=== PATIENT | female | born 1975 | race Hispanic/Latino ===

== ENCOUNTER 2017-05-29 08:02 | Outpatient (CLI) | payer OTHER | END 2017-05-29 08:03 | disposition home or self-care (01) | LOC: BICMAMMO 08:02 | PROVIDERS: ATTEND Obstetrics & Gynecology | DX: Z12.31 Encounter for screening mammogram for malignant neoplasm of breast (principal) | CPT/HCPCS: 77067 ==

== ENCOUNTER 2018-05-26 01:19 | Observation (INO) | payer OTHER ==
[2018-05-26 01:46] LABS: Bilirubin Negative (Negative); Blood, Urine Negative (Negative); Clarity CLEAR (Clear); Glucose, Urine (Dipstick) Negative (Negative); Leukocyte Small (Negative); Nitrite Negative (Negative); Protein, Urine (Dipstick) 30 mg/dL (Neg-Trace); Urobilinogen 0.2 mg/dL (0.2-1.0); pH, Urine 5.5 (5.0-9.0)
[2018-05-26 01:48] LABS: Bacteria/HPF None Seen HPF (None Seen); Hyaline Casts/LPF 4-6 HYALINE CAST LPF (0-3 Hyaline); Pathc Cast-AUWi Flag 1.88 (0-2.49)
[2018-05-26 02:11] LABS: #Basophils 0.1 thou/uL (0.0-0.2); #Eosinphils 0.1 thou/uL (0.0-0.7); #Lymphocytes 3.6 thou/uL (1.20-3.40); #Monocytes 0.9 thou/uL (0.11-0.59); #Neutrophils 8.7 thou/uL (1.40-6.50); %Basophils 0.4 % (0.0-1.0); %Eosinophils 0.9 % (0.0-10.0); %Lymphocytes 27.2 % (21.0-51.0); %Monocytes 6.9 % (0.0-10.0); %Neutrophils 64.6 % (42.0-75.0); Hemoglobin 14.7 g/dL (12.0-16.0); Mean Corpuscular HGB CONC 33.2 g/dL (32.0-36.0); Mean Corpuscular Hemoglobin 28.7 pg (27.0-31.0); Mean Corpuscular Volume 86.5 fL (78.0-98.0); Mean Platelet Volume 6.9 fL (7.4-10.4); Platelet Count 273 thou/uL (130-400); RBC Distribution Width 12.6 % (11.5-14.5); White Blood Cell (WBC) Count 13.4 thou/uL (4.8-10.8)
[2018-05-26 02:29] LABS: ALT (SGPT) 37 U/L (8-55); AST (SGOT) 18 U/L (5-34); Albumin 3.9 g/dL (3.5-5.0); Alkaline Phosphatase 102 U/L (40-150); Anion Gap 13 mmol/L (10-20); BUN (Urea Nitrogen) 12 mg/dL (7.0-18.7); Bilirubin, Total 0.6 mg/dL (0.2-1.2); Calc. Creatinine Clearance 0 mL/min (70-130); Calcium 9.2 mg/dL (7.8-10.44); Carbon Dioxide 25 mmol/L (22-29); Chloride 105 mmol/L (98-107); Estimated GFR-MDRD 79; Globulin 3.9 g/dL (2.4-3.5); Glucose 105 mg/dL (70-105); Lipase 126 U/L (8-78); Potassium 3.6 mmol/L (3.5-5.1); Protein, Total 7.8 g/dL (6.0-8.3); Sodium 139 mmol/L (136-145)
[2018-05-26] MEDS ORDERED: Morphine 4 MG/ML VIAL ONE (04:10)
[2018-05-26] MEDS ORDERED: Ketorolac Tromethamine 30 MG/ML VIAL ONE (04:10)
[2018-05-26] MEDS ORDERED: Piperacillin/Tazobactam 3.375 GM VIAL ONE (05:23)
[2018-05-26] MEDS ORDERED: Morphine 4 MG/ML VIAL SLOW IVP PRN (06:42)
[2018-05-26] MEDS ORDERED: Sodium Chloride 0.45% 1,000 ML IV SCH (06:45)
[2018-05-26 06:53] VITALS: BMI 34.7
--- NOTE | 2018-05-26 07:56 | ULT ---
PRELIMINARY REPORT/[facility]/EMERGENTY AFTER-HOURS PROCEDURE US Abdomen Limited, Right Upper Quadrant EXAM DATE/TIME: 05/26/2018 2:29 AM CLINICAL HISTORY: 43 years old, female; Pain; Other: Ruq pain, HX of gallstones TECHNIQUE: Real-time ultrasound of the abdomen with image documentation. Examination was focused on the right up per quadrant. COMPARISON: No relevant prior studies available. FINDINGS: Liver: Liver demonstrates fatty infiltration. Hypoechoic 3.5 x 3.2 x 4.6 cm focus noted left lobe whi ch may reflect area of fatty sparing however mass not excluded. Gallbladder: Multiple stones with sludge, wall thickening at 3 mm, and focal sonographic tenderness. Common bile duct: 5 mm. No stones. No dilation. Pancreas: Obscured. Right kidney: Normal. No mass. No hydronephrosis. IMPRESSION: Gallstones with sludge, wall thickening and focal sonographic tenderness. Findings consistent with ch olecystitis in the appropriate clinical setting. Fatty liver. Hypoechoic focus noted left lobe which may reflect area of fatty sparing however mass not excluded. Nonemergent MRI vs CT liver correlation advised. Thank you for allowing us to participate in the care of your patient. Dictated and Authenticated by: Sara Swartz MD 05/26/2018 5:06 AM Central Time ([place] & [place]) FINAL REPORT ULTRASOUND GALLBLADDER RIGHT UPPER QUADRANT: History: Pain. Comparison: None. FINDINGS: The findings and impression are concordant with the preliminary report. Code QA. Liver protocol CT or MRI is highly recommended. POS: [facility]
[2018-05-26] MEDS ORDERED: Ondansetron PF 4 MG/2 ML Vial ONE (09:21)
[2018-05-26] MEDS ORDERED: Lidocaine 1% PF 5 ML VIAL ONE (09:21)
[2018-05-26] MEDS ORDERED: PROPOFOL 200 MG/20 ML VIAL ONE (09:21)
[2018-05-26] MEDS ORDERED: PHENYLEPHRINE-NS 100 MCG/ML 10 ML SYRINGE ONE (09:21)
[2018-05-26] MEDS ORDERED: cefOXitin Sodium/Dextrose,Iso 2 GM in Premix Bag 1 BAG IVPB SCH (10:30)
[2018-05-26] MEDS ORDERED: cefOXitin 2 GM in Sodium Chloride 0.9% 100 ML IVPB SCH (10:30)
[2018-05-26] MEDS ORDERED: Piperacillin/Tazobactam 4.5 GM in Sodium Chloride 0.9% 100 ML IVPB SCH (12:00)
[2018-05-26] MEDS ORDERED: Fentanyl 100 MCG/2 ML VIAL ONE ×3 (12:53→14:50)
[2018-05-26] MEDS ORDERED: Famotidine/PF 20 mg/2ml Vial ONE (12:54)
--- NOTE | 2018-05-26 13:45 | HP ---
HISTORY OF PRESENT ILLNESS: Ms. Flores is a 43-year-old woman, who was visiting family in [place]. The patient reports insidious onset of epigastric abdominal pain, which was postprandial in nature while in [place]. The patient's pain started 4 days ago, associated with abdominal bloating and flatulence. Pain was rated at 10/10. The patient also endorsed some nausea and nonbilious emesis. Denies any fevers or chills. She was seen in [place] by primary physician and received antibiotics and IV fluids overnight with minimum relief the next day. This patient was unable to retain some of the oral medications that was given to her the next day. They decided to return back to [facility]. En route, the patient had a recurrent epigastric abdominal pain when she took a bite of subway sandwich. She then presented to the emergency department yesterday with a complaint of worsening abdominal pain. She denies any fevers or chills. PAST MEDICAL HISTORY: Denies any previous medical problems except for some ovarian neoplastic process. She is unsure as to if there were malignancies. PAST SURGICAL HISTORY: Pertinent now for total abdominal hysterectomy with bilateral salpingo-oophorectomy. SOCIAL HISTORY: The patient is and lives at home with her family. She is a G2, P2. 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 She denies any cigarette smoking, ethanol, or illicit drug abuse. FAMILY HISTORY: Notable for her father with essential hypertension and diabetes mellitus. She denies any family history of heart disease or cancer. PRE-HOSPITAL MEDICATIONS: She denies any medications except for [id number] multivitamins. ALLERGIES: THE PATIENT DENIES ANY KNOWN DRUG ALLERGIES. REVIEW OF SYSTEMS: Ten-point review of systems essentially unremarkable except as stated in past medical history and chief complaint. PHYSICAL EXAMINATION: GENERAL: This reveals a 43-year-old normally-developed woman, who is otherwise coherent and interactive and appears stated age. The patient is alert and oriented x3, appears to be in no acute distress at the time of my evaluation. She now rates the pain at 4/10. VITAL SIGNS: This morning, blood pressure 105/67, pulse 77, respiratory rate is 15, temperature 98.4 degrees Fahrenheit, and oxygen saturation 95% on room air. HEENT: Reveals normocephalic and atraumatic. Pupils are equal, round, and reactive to light and accommodation. Extraocular muscles are intact bilaterally. She has no sclerae icterus present. Oral mucosa pink and moist. No lesions are noted. HEART: Reveals regular rate and rhythm. No murmurs or gallops auscultated. LUNGS: Clear to auscultation bilaterally. Her breathing regular and nonlabored. ABDOMEN: Soft and obese. She has right upper quadrant tenderness to palpation with a positive Jimenez's sign. Liver and spleen otherwise nonpalpable below costal margin. EXTREMITIES: Reveal 2+ radial and pedal pulses bilaterally. She has no ankle edema present. NEUROLOGIC: Reveals no focal deficits present. LABORATORY FINDINGS: Today includes a CBC with 13,400 white blood cells, hemoglobin and hematocrit 14.7 and 44.1 respectively, and platelet count is 273,000. Metabolic profile; sodium 139, potassium 3.6, chloride is 105, bicarb is 25, BUN 12, creatinine 0.79, and glucose 105. Total bilirubin 0.6, AST and ALT normal at 18 and 37 respectively, and alkaline phosphatase is also normal at 102. Serum lipase is marginally elevated at 126. I have personally reviewed the abdominal ultrasound, which is remarkable for multiple intraluminal gallstones. There is gallbladder wall thickening and pericholecystic fluid present. Common bile duct is normal in diameter for this patient's age at 5.1 mm in diameter. IMPRESSION: Acute cholecystitis with cholelithiasis. PLAN: 1. Laparoscopic cholecystectomy. 2. I advised the patient of the above findings and plan. 3. I also informed the patient of the risks and benefits of the proposed surgery to include, but not limited to, bleeding, infection, injury to bile duct or surrounding structures. 4. This information was provided to the patient through a design transferrer. The patient indicates understanding information given. 5. She is going to consent for this admission and surgical intervention. Job ID: [id number]
[2018-05-26] MEDS ORDERED: Bupivacaine/Epinephrine 0.25% 30 ML VIAL ONE (14:36)
[2018-05-26] MEDS ORDERED: Midazolam HCl 2 mg/2 ml Vial ONE (14:50)
[2018-05-26] MEDS ORDERED: Iothalamate Meglumine 60% 50 ML VIAL FS ONE (15:55)
[2018-05-26] MEDS ORDERED: Promethazine HCl 25 MG/ML VIAL IM PRN (17:49)
[2018-05-26] MEDS ORDERED: Promethazine HCl 25 MG/ML VIAL SLOW IVP PRN (17:49)
[2018-05-26] MEDS ORDERED: Ondansetron HCl/PF 4 MG/2 ML Vial IVP PRN (17:49)
[2018-05-26] MEDS ORDERED: traMADol HCl 50 MG TAB PO PRN (17:56)
[2018-05-26] MEDS ORDERED: Ibuprofen 800 MG TAB PO PRN (17:56)
[2018-05-26] MEDS ORDERED: Piperacillin/Tazobactam 3.375 GM in Sodium Chloride 0.9% 100 ML IVPB SCH (18:00)
--- NOTE | 2018-05-26 18:25 | RAD ---
X-RAY CHOLANGIOGRAM IN SURGERY: HISTORY: Laparoscopic cholecystectomy with cholangiogram. COMPARISON: None. FINDINGS: The cystic duct is cannulated. Contrast is seen in the cystic duct and the common bile duct, as well as the pancreatic duct. There is small volume contrast within the proximal small bowel. IMPRESSION: Fluoroscopy for surgical use. POS: HOME
[2018-05-26] MEDS: Acetaminophen 500 MG TAB PO SCH ×2 (19:46→23:33)
[2018-05-26] MEDS: traMADol HCl 50 MG TAB PO PRN (20:33)
[2018-05-26] MEDS: Piperacillin/Tazobactam 3.375 GM in Sodium Chloride 0.9% 100 ML IVPB SCH (20:40)
--- NOTE | 2018-05-27 00:50 | OP ---
DATE OF PROCEDURE: 05/26/2018 PREOPERATIVE DIAGNOSIS: Acute cholecystitis with cholelithiasis. POSTOPERATIVE DIAGNOSES: Acute cholecystitis, cholelithiasis, and choledocholithiasis. OPERATION PERFORMED: Laparoscopic cholecystectomy with intraoperative cholangiogram. ANESTHESIA: General endotracheal. ESTIMATED BLOOD LOSS: 25 mL. FLUIDS GIVEN: 1500 mL crystalloids. COUNTS: Sponge and instrument count was verified as correct x2. COMPLICATIONS: None apparent at the time of operation. INDICATIONS FOR OPERATION: A 43-year-old woman, who presented with recurrent epigastric right upper quadrant abdominal pain. Clinical radiographic examination was consistent with acute cholecystitis with cholelithiasis for which the patient was brought to the operative room for cholecystectomy. Intraoperative cholangiogram was also performed as the patient was noted with mildly elevated lipase. The common bile duct was also upper limits of normal for patient's age. Findings are consistent with gallbladder in the usual anatomic location, completely encased by omental adhesions. Cholangiography also reveals distal common bile duct with filling defects suggestive of choledocholithiasis. DESCRIPTION OF PROCEDURE: Informed consent was obtained from the patient, who was brought to the operating room and placed in supine position. Following general anesthesia, abdomen was sterilely prepped and draped in the usual fashion. The skin below the umbilicus was infiltrated with 0.25% Marcaine with epinephrine. A small curvilinear infraumbilical incision was made using 11 scalpel. The umbilical stalk was grasped with a Geovanna and elevated. Veress needle was inserted through incision first in the peritoneal cavity through which the abdomen was insufflated with 3 L of CO2 gas. The intraabdominal pressure was noted at 2 mmHg present for abdomen insufflation. The Veress needle was removed and a 5 mm trocar was introduced using a Visiport under laparoscopy. Laparoscopy confirmed proper placement of the port with no injury to the underlying structures. Additional laparoscopy revealed gallbladder in the usual anatomic location, completely encased by omental adhesions. Under direct laparoscopy, a 12 mm epigastric and two 5 mm right lateral subcostal ports were placed. The overlying skin was infiltrated with 0.25% Marcaine with epinephrine and appropriate incision was made. The patient was placed in a reverse Trendelenburg position and rotated to the left. I introduced a Yanet dissector with cautery using this to take down omental adhesions to expose the fundus of the gallbladder. A NextGreatPlaceige grasper was introduced through the right lateral subcostal port, grasping the fundus of gallbladder, which was elevated cephalad. The omental adhesions were then taken down from the remainder of the gallbladder using a Yanet dissector with cautery. Good hemostasis was noted in place. Anterior coursing cystic artery was dissected free from surrounding structures and divided between clips, applying two clips proximally and one clip at the junction of the cystic artery and gallbladder. The cystic duct was also carefully dissected free from surrounding structures. I placed a securing clip at the junction of the cystic duct and gallbladder. Cystotomy was made proximal to securing clip using Endo scissors. To introduce the cholangiocatheter in the right upper quadrant, we flushed first with saline and the catheter was introduced into the cystic duct for lumen, securing this with a single clip. It was flushed with difficulty with saline and then on direct fluoroscopy cholangiogram was completed using a total of 23 mL of Conray contrast. Total fluoroscopy time was 56 seconds. There was a filling defect in the distal aspect of the common bile duct. I gave a milligram of glucagon and repeated the cholangiogram, still persistent distal common bile duct. No filling defect was noted. Cholangiography was terminated at this juncture. Securing clip was removed and the cystic duct was divided between clips, applying two clips proximally. The gallbladder itself was removed from the liver bed using cautery with good hemostasis. Gallbladder was delivered out of the abdominal cavity using the EndoCatch. Operative site was irrigated with saline. Finding no other pathology, laparoscopy was terminated. The fascia of the epigastric port was closed using 0 Vicryl suture and endo-closure on the laparoscopy. Abdomen was desufflated. All ports and instruments were removed and accounted for. Skin incision was closed using 4-0 Monocryl suture in subcuticular fashion. Dermabond was applied over incisional closure. The patient tolerated the operation without any apparent complication and was returned to recovery room in satisfactory condition. Job ID: [id number]
[2018-05-27] MEDS: Piperacillin/Tazobactam 3.375 GM in Sodium Chloride 0.9% 100 ML IVPB SCH ×5 (03:45→21:14)
[2018-05-27] MEDS: Acetaminophen 500 MG TAB PO SCH ×3 (05:41→16:53)
[2018-05-27 07:15] LABS: #Eosinphils 0.1 thou/uL (0.0-0.7); #Lymphocytes 2.5 thou/uL (1.20-3.40); #Monocytes 0.7 thou/uL (0.11-0.59); #Neutrophils 7.1 thou/uL (1.40-6.50); %Basophils 0.2 % (0.0-1.0); %Eosinophils 0.7 % (0.0-10.0); %Lymphocytes 23.7 % (21.0-51.0); %Monocytes 6.6 % (0.0-10.0); %Neutrophils 68.8 % (42.0-75.0); Hemoglobin 12.6 g/dL (12.0-16.0); Mean Corpuscular HGB CONC 33.3 g/dL (32.0-36.0); Mean Corpuscular Hemoglobin 28.8 pg (27.0-31.0); Mean Corpuscular Volume 86.5 fL (78.0-98.0); Mean Platelet Volume 6.9 fL (7.4-10.4); Platelet Count 245 thou/uL (130-400); RBC Distribution Width 12.3 % (11.5-14.5); Red Blood Cell (RBC) Count 4.39 mill/uL (4.20-5.40); White Blood Cell (WBC) Count 10.4 thou/uL (4.8-10.8)
[2018-05-27 07:33] LABS: ALT (SGPT) 153 U/L (8-55); AST (SGOT) 159 U/L (5-34); Albumin 3.3 g/dL (3.5-5.0); Alkaline Phosphatase 196 U/L (40-150); Anion Gap 13 mmol/L (10-20); BUN (Urea Nitrogen) 8 mg/dL (7.0-18.7); Bilirubin, Direct 1.7 mg/dL (0.1-0.3); Bilirubin, Total 2.2 mg/dL (0.2-1.2); Calc. Creatinine Clearance 158 mL/min (70-130); Calcium 8.7 mg/dL (7.8-10.44); Carbon Dioxide 25 mmol/L (22-29); Chloride 104 mmol/L (98-107); Estimated GFR-MDRD Greater than 90; Glucose 114 mg/dL (70-105); Potassium 3.5 mmol/L (3.5-5.1); Protein, Total 6.8 g/dL (6.0-8.3); Sodium 138 mmol/L (136-145)
[2018-05-27 07:46] LABS: Lipase 1790 U/L (8-78)
--- NOTE | 2018-05-27 10:15 | NM ---
HEPATOBILIARY SCAN: COMPARISON: Cholangiogram in surgery 05/26/2018 and gallbladder ultrasound 05/26/2018. HISTORY: Evaluate for common bile duct obstruction. Elevated bilirubin status post cholecystectomy. TECHNIQUE: A hepatobiliary scan was performed after administration of 5.1 mCi of Technetium 99m mebrofenin. FINDINGS: Prompt uptake of the radiopharmaceutical by the liver is seen. the gallbladder is not seen as it has been removed. Contrast is seen within the bowel by 10 minutes. IMPRESSION: No evidence of common bile duct obstruction as the radiopharmaceutical passes into the bowel. POS: [facility]
--- NOTE | 2018-05-27 15:16 | CON ---
DATE OF CONSULTATION: HISTORY OF PRESENT ILLNESS: The patient is a 43-year-old female, who came into the hospital yesterday with 4 days of right upper quadrant pain. She subsequently underwent a cholecystectomy and intraoperative cholangiogram. The intraoperative cholangiogram showed some sparse bowel filling, but no clear obstruction. I reviewed the cholangiogram with the radiologist and it was unclear whether there was a distinct gallstone in the common bile duct. Presently, the patient is very hungry. She is having no abdominal pain. She is sore from her surgery, but otherwise doing well. PAST MEDICAL HISTORY: Essentially negative. PAST SURGICAL HISTORY: Includes hysterectomy. SOCIAL HISTORY: She does not smoke or drink. FAMILY HISTORY: Negative for GI or liver disease. REVIEW OF SYSTEMS: CONSTITUTIONAL: No fever or chills. No weight loss. EYES: No blurred vision or double vision. ENT: No sore throat or earaches. CARDIOVASCULAR: No chest pain or palpitation. PULMONARY: No shortness of breath, cough, or wheezing. GI: See above. : No hematuria or dysuria. MUSCULOSKELETAL: No joint pain or muscle weakness. SKIN: No rashes. NEUROLOGIC: No numbness or seizure activity. PHYSICAL EXAMINATION: GENERAL: Shows overweight female, in no acute distress. VITAL SIGNS: Temperature 98.2, pulse 79, respiratory rate 16, and blood pressure 132/83. HEENT: Unremarkable. NECK: Supple. CHEST: Clear. CARDIOVASCULAR: Regular rate and rhythm. ABDOMEN: Soft, slightly tender in the right upper quadrant without rebound or guarding. Bowel sounds are present normoactive. LABORATORY DATA: Laboratories shows essentially normal CBC. Chemistries were normal on admission with a lipase of 126. Today's labs showed a total bilirubin 2.2, direct is 1.7, AST 159, ALT 153, alkaline phosphatase of 196, and lipase is 1790. HIDA scan showed no evidence of common bile duct obstruction. ASSESSMENT: Abnormal liver function test, status post laparoscopic cholecystectomy - it is unclear in this situation whether the patient has a common duct stone. The common bile duct is very small. There are no clear filling defects. She does have some slight elevation of her lipase, either from the cholangiogram or possibly a small stone. Presently, she is feeling well without pain or decreased appetite. RECOMMENDATIONS: Repeat LFTs in a.m. If elevated, then would proceed with ERCP. If improving, would feed the patient and discharge her if she tolerates her diet. Job ID: [id number]
--- NOTE | 2018-05-27 17:04 | PRG ---
DATE OF SERVICE: 05/27/2018 SUBJECTIVE: The patient is postop day #1 cholecystectomy. The patient had no overnight event. She is n.p.o. at this time. GI was consulted and a HIDA scan was ordered. OBJECTIVE: VITAL SIGNS: Temperature 98.4, pulse 73, respirations 16, 93% on room air SpO2, 130/80 blood pressure. GENERAL: The patient is awake, alert, in no distress, lying in bed. HEENT: Normocephalic and atraumatic. Mucous membranes moist. RESPIRATORY: Rate regular, unlabored. No distress. CARDIOVASCULAR: No pedal edema. Regular rhythm. MUSCULOSKELETAL: Moves all extremities. Positive distal pulses. ASSESSMENT AND PLAN: Postop day 1 of cholecystectomy. Pending GI consult and HIDA scan, possible endoscopic retrograde cholangiopancreatography. We will repeat LFTs in the morning. The patient has been discussed with the attending surgeon. Job ID: [id number]
[2018-05-28] MEDS: Acetaminophen 500 MG TAB PO SCH ×3 (00:08→10:43)
[2018-05-28] MEDS: traMADol HCl 50 MG TAB PO PRN (00:10)
[2018-05-28] MEDS: Piperacillin/Tazobactam 3.375 GM in Sodium Chloride 0.9% 100 ML IVPB SCH ×2 (03:31→07:31)
[2018-05-28 07:15] LABS: ALT (SGPT) 126 U/L (8-55); AST (SGOT) 81 U/L (5-34); Albumin 3.3 g/dL (3.5-5.0); Alkaline Phosphatase 180 U/L (40-150); Bilirubin, Direct 0.4 mg/dL (0.1-0.3); Bilirubin, Total 0.7 mg/dL (0.2-1.2); Lipase 116 U/L (8-78); Protein, Total 6.7 g/dL (6.0-8.3)
[2018-05-28 08:30] VITALS: TEMP 98.4
[2018-05-28 12:14] VITALS: BP 109/70
--- NOTE | 2018-05-29 04:31 | DIS ---
DATE OF ADMISSION: 05/26/2018 DATE OF DISCHARGE: 05/28/2018 ADMITTING PHYSICIAN: Kyler Sibley DO DISCHARGING PHYSICIAN: Kyler Sibley DO. ADMITTING DIAGNOSIS: Acute cholecystitis with cholelithiasis. POSTOPERATIVE DIAGNOSES: 1. Acute cholecystitis with cholelithiasis. 2. Choledocholithiasis, resolved. 3. Resolved acute pancreatitis. CONSULTANTS: Dr. Lazarus Macario with Gastroenterology. OPERATIONS AND PROCEDURES: Laparoscopic cholecystectomy with intraoperative cholangiogram on 05/26/2017, by Dr. Sibley. Please see a separate dictation for operative report. HISTORY AND HOSPITAL COURSE: A 43-year-old woman, presented with recurrent epigastric right upper quadrant abdominal pain. Clinical and radiographic examination were consistent with acute cholecystitis with cholelithiasis for which the patient was brought to the operating room for laparoscopic cholecystectomy. Given marginally elevated lipases, decision was made to perform intraoperative cholangiogram. Cholangiogram revealed filling defects involving the distal common bile duct. Choledocholithiasis was suspected for which Gastroenterology was consulted. Postoperative day #1, the patient was evaluated, although her pain is markedly improved. Her LFTs and serum lipase were markedly elevated. The patient was placed on a clear liquid diet. HIDA scan was obtained which did not reveal any evidence of common bile ductal obstruction. Postoperative day #2, the patient is re-evaluated at this time. She reports no abdominal pain. She is tolerating diet, having normal bowel and urinary function. LFTs and serum lipase done, almost normalized. She has remained hemodynamically stable and afebrile throughout this hospitalization. On clinical examination, abdomen is soft with mild incisional tenderness to palpation. I suspect that the patient may have passed a stone and pancreatitis has clinically resolved. Diet was advanced and the patient has been discharged today with the following instructions; 1. She follows up with me in the Surgery Clinic in 2 weeks. 2. She is instructed to avoid weight lifting in excess of 20 pounds has been released by me. 3. She may shower, but avoid soaking herself in a bathtub or swim until I have seen her in the next 2 weeks. 4. She is instructed to resume all of her pre-hospital medications as prescribed by her primary care physician. 5. Additionally, she may take Tylenol 1000 mg p.o. q.6 hours alternating this with ibuprofen 800 mg p.o. q.8 hours p.r.n. pain. 6. Additionally, she is given a prescription for tramadol 50 mg, #30, to be taken 1 to 2 p.o. q.6 hours p.r.n. breakthrough pain. 7. The patient is instructed to call me with any questions or problems including exacerbation of abdominal pain, fever in excess of 101 degrees Fahrenheit or intolerance to oral intake. Information given to the patient in the presence of her daughter who provided Burmese interpretation. The patient has indicated understanding of information given. She has expressed gratitude for the care and during this hospitalization and surgery. Job ID: [id number]
== END 2018-05-28 12:55 | disposition home or self-care (01) ==
LOC: ERS 01:19 → SURG A 06:31
PROVIDERS: ADMIT Surgery; ATTEND Surgery
PROC: 0FT44ZZ Resection of Gallbladder, Percutaneous Endoscopic Approach (ICD-10-PCS; principal; 2018-05-26)
PROC: BF10YZZ Fluoroscopy of Bile Ducts using Other Contrast (ICD-10-PCS; 2018-05-26)
DX: K81.1 Chronic cholecystitis (principal); Z90.710 Acquired absence of both cervix and uterus; Z90.722 Acquired absence of ovaries, bilateral
CPT/HCPCS: 36415; 47532; 76705; 78226; 80048; 80053; 80076; 81003; 81015; 83690; 85025; 88304; 96365; 96366; 96374; 96375; 96376; A9537; G0378; J0131; J1610; J1885; J2001; J2250; J2270; J2405; J2543; J2704; J3010; J7050; Q9961; S0028

== ENCOUNTER 2019-11-25 13:44 | Outpatient (CLI) | payer OTHER ==
--- NOTE | 2019-11-25 14:37 | MMO ---
Bilateral MAMMO Bilat Diag DDI+AMY. CLINICAL HISTORY: Patient is 44 years old and is seen for diagnostic exam and pain in the left breast. The patient has no family history of breast cancer. The patient has no personal history of cancer. VIEWS: The views performed were: bilateral craniocaudal with tomosynthesis; bilateral mediolateral oblique with tomosynthesis; bilateral mediolateral with tomosynthesis; and cleavage view. FILMS COMPARED: The present examination has been compared to prior imaging studies performed at [facility] on 07/29/2018, and at [facility] on 09/23/2012, 08/12/2015 and 05/29/2017. This study has been interpreted with the assistance of computer-aided detection. MAMMOGRAM FINDINGS: There are scattered fibroglandular densities. There are no suspicious masses, suspicious calcifications, or new areas of architectural distortion. There are no mammographic abnormalities to explain the patient's breast pain. The patient is referred back to her clinician. Negative imaging findings should not preclude biopsy if clinical findings are suspicious. IMPRESSION: THERE ARE NO MAMMOGRAPHIC ABNORMALITIES TO EXPLAIN THE PATIENT'S BREAST PAIN. THE PATIENT IS REFERRED BACK TO HER CLINICIAN. NEGATIVE IMAGING FINDINGS SHOULD NOT PRECLUDE BIOPSY IF CLINICAL FINDINGS ARE SUSPICIOUS. THE RESULTS OF THIS EXAM WERE SENT TO THE PATIENT. ACR BI-RADS Category 1 - Negative MAMMOGRAPHY NOTE: 1. A negative mammogram report should not delay a biopsy if a dominant of clinically suspicious mass is present. 2. Approximately 10% to 15% of breast cancers are not detected by mammography. 3. Adenosis and dense breasts may obscure an underlying neoplasm. Reported by: GLO HOSKINS MD Electonically Signed: [id number]
== END 2019-11-25 13:45 | disposition home or self-care (01) ==
LOC: BICMAMMO 13:44
PROVIDERS: ATTEND Obstetrics & Gynecology
DX: N64.4 Mastodynia (principal)
CPT/HCPCS: 77066; G0279

== ENCOUNTER 2020-07-30 07:16 | Outpatient (CLI) | payer OTHER | END 2020-07-30 07:17 | disposition home or self-care (01) | LOC: BICULT 07:16 | PROVIDERS: ATTEND Physician Assistant | DX: R10.11 Right upper quadrant pain (principal); K76.0 Fatty (change of) liver, not elsewhere classified | CPT/HCPCS: 76857; 93975 ==

== ENCOUNTER 2021-01-05 13:51 | Outpatient (CLI) | payer OTHER | END 2021-01-05 13:52 | disposition home or self-care (01) | LOC: BICMAMMO 13:51 | PROVIDERS: ATTEND Obstetrics & Gynecology | DX: N64.4 Mastodynia (principal); N64.59 Other signs and symptoms in breast; N64.53 Retraction of nipple | CPT/HCPCS: 77066; G0279 ==

== ENCOUNTER 2022-07-24 12:54 | Emergency (ER) | payer OTHER | END 2022-07-24 14:12 | disposition home or self-care (01) | LOC: ERS 12:54 | DX: R07.81 Pleurodynia (principal) | CPT/HCPCS: 71045 ==

== ENCOUNTER 2023-01-15 08:15 | Outpatient (CLI) | payer OTHER | END 2023-01-15 08:16 | disposition home or self-care (01) | LOC: BICMAMMO 08:15 | PROVIDERS: ATTEND Specialist | DX: Z12.31 Encounter for screening mammogram for malignant neoplasm of breast (principal); N64.89 Other specified disorders of breast; Z91.89 Other specified personal risk factors, not elsewhere classified | CPT/HCPCS: 77063; 77067 ==

== ENCOUNTER 2023-01-23 08:13 | Outpatient (CLI) | payer OTHER | END 2023-01-23 08:14 | disposition home or self-care (01) | LOC: BICMAMMO 08:13 | PROVIDERS: ATTEND Specialist | DX: R92.8 Other abnormal and inconclusive findings on diagnostic imaging of breast (principal) | CPT/HCPCS: G0279 ==

== ENCOUNTER 2024-05-05 14:27 | Outpatient (CLI) | payer OTHER | END 2024-05-05 14:28 | disposition home or self-care (01) | LOC: BICMAMMO 14:27 | PROVIDERS: ATTEND Student in an Organized Health Care Education/Training Program | DX: Z12.31 Encounter for screening mammogram for malignant neoplasm of breast (principal); Z91.89 Other specified personal risk factors, not elsewhere classified | CPT/HCPCS: 77063; 77067 ==